=== PATIENT | female | born 1975 | race Caucasian/White ===

== ENCOUNTER 2021-01-22 10:24 | Emergency (ER) | payer SELFPAY ==
--- NOTE | 2021-01-22 10:30 | XR_ITS ---
WS: [id number] Exam: XR shoulder RT min 2V* [id number] Date/Time of Exam: 01/22/2021 10:30 AM Reason For Exam: injury/pain The projections of the shoulder reveal no fractures, anomalies, soft tissue swelling, or calcificatio ns. There is normal bony alignment. No irregularity of the bony architecture is noted. XR/XR shoulder RT min 2V* [id number] IMPRESSION: Negative right shoulder.
[2021-01-22 10:35] VITALS: BP 125/70; PULSE 81; RESP 16; TEMP 36.3; O2SAT 97; BMI 27.4
[2021-01-22 10:38] VITALS: BP 125/70; PULSE 58; RESP 16; O2SAT 99
--- NOTE | 2021-01-22 10:44 | ED_ITS ---
HPI - Extremity Injury (Upper) General: Chief Complaint: Extremity Injury, Upper Stated Complaint: R SHOULDER PAIN/INJURY Source: patient Mode of arrival: ambulatory Limitations: no limitations History of Present Illness: HPI narrative: Patient is a nice 45-year-old female who presents to ED today for evaluation of a right shoulder and elbow injury that she sustained earlier this morning after falling off of a hover board. Patient denies any other injury sustained during the fall. She denies striking her head, LOC, neck or back pain. MD complaint: injury to: shoulder and elbow Onset (ago): hour(s) Other Extremity Injury: Right: elbow and shoulder Other injuries: none Place: home Severity: moderate Relieving factors: immobilization Exacerbating factors: movement of extremity Context: fall Associated symptoms: Reports no associated symptoms; Denies neck pain Review of Systems Const: Denies: fever(s) Eyes: Denies: change in vision Card: Denies: chest pain Resp: Denies: dyspnea GI: Denies: nausea or vomiting Musc: Reports: joint pain (R elbow/shoulder) and limited range of motion; Denies: neck pain, back pain, extremity pain, extremity swelling or joint swelling Neuro: Denies: numbness in extremities or sensory changes PFSH ED PFSH: Social History Smoking and tobacco status: never smoked Alcohol intake: never Physical Exam Const: COMMON NORMALS: no acute distress, average body habitus, patient oriented x3, no limitations, healthy appearing, alert and well nourished GENERAL APPEARANCE: cooperative ORIENTATION/CONSCIOUSNESS: Yes awake, Yes oriented to person, Yes oriented to place and Yes oriented to time HENMT: COMMON NORMALS: normocephalic and atraumatic HEAD & SCALP: normocephalic and atraumatic Neck/C-Spine: COMMON NORMALS: full ROM CERVICAL SPINE: No pain with cervical ROM, No Cervical spine tenderness and No Paracervical muscle tenderness Extremity: GENERAL: Yes normal exam except as noted OTHER: TTP R clavicle and lateral/anterior glenohumeral joint; pt will not attempt any form of ROM secondary to pain; NV intact; no obvious bony deformity or dislocation noted; she has tenderness throughout R elbow; again will not attempt ROM; distal pulses normal; cap refill less than 2 secs Neuro: SIVA COMA SCALE: document GCS findings Ararat coma scale eye opening: Spontaneous Siva coma scale verbal response: Orientated Ararat coma scale motor response: Obey commands Siva coma scale total score: 15 COMMON NORMALS: patient oriented x3 and no sensory deficits noted SENSORIUM/ORIENTATION: Yes alert, Yes oriented to person, Yes oriented to place and Yes oriented to time Skin: NARRATIVE SKIN EXAM: no abrasions/lacerations noted Course Vital Signs: Vital signs: Vital Signs Temperature 97.3 F L 01/22/21 10:35 Pulse Rate 67 01/22/21 11:23 Respiratory Rate 16 01/22/21 11:23 Blood Pressure 111/73 01/22/21 11:23 Pulse Oximetry 99 01/22/21 11:23 MDM - Extremity Injury (Upper) MDM Narrative: Medical decision making narrative: XRs are normal. Patient will be placed in a shoulder sling with recommendations for passive range of motion over the next few days. I will place her on Diclofenac. Recommend she follow-up with PCP in 1 to 2 weeks if symptoms fail to improve. Imaging Data^: XR R elbow: Radiologist's impression: [address] [address] XRay Report Signed Patient: Kavitha Jenkins Unit #: [id number] : 1975 Age/Sex: 45 / F ADM Date: 01/22/21 Loc: ER Room/Bed: Attending Dr: Ordering Provider/Ordering MD: Lainey Marcelino Date of Service: 01/22/21 Procedure(s): XR elbow RT min 3V* [id number] Accession Number(s): [id number] Report Number: [id number] WS: [id number] Exam: XR elbow RT min 3V* [id number] Date/Time of Exam: 01/22/2021 10:45 AM Reason For Exam: injury/fall/pain Findings: There are no fractures, soft tissue swelling, or calcifications. The elbow shows normal bony alignment. There is no irregularity of the bony architecture. XR/XR elbow RT min 3V* [id number] IMPRESSION: Negative right elbow. Dictated By: Mg Guadalupe DO Signed By: Mg Guadalupe DO Signed Date/Time: 01/22/21 1102 DD/ 1101 XR R shoulder: Radiologist's impression: [facility] [address] [facility] [place] [address] XRay Report Signed Patient: Kavitha Jenkins Unit #: [id number] : 1975 Age/Sex: 45 / F ADM Date: 01/22/21 Loc: ER Room/Bed: Attending Dr: Ordering Provider/Ordering MD: Lainey Marcelino Date of Service: 01/22/21 Procedure(s): XR shoulder RT min 2V* 53430 Accession Number(s): [id number] Report Number: [id number] WS: [id number] Exam: XR shoulder RT min 2V* [id number] Date/Time of Exam: 01/22/2021 10:30 AM Reason For Exam: injury/pain The projections of the shoulder reveal no fractures, anomalies, soft tissue swelling, or calcifications. There is normal bony alignment. No irregularity of the bony architecture is noted. XR/XR shoulder RT min 2V* 29584 IMPRESSION: Negative right shoulder. Dictated By: Mg Guadalupe DO Signed By: Mg Guadalupe DO Signed Date/Time: 01/22/211102 DD/ 1102 Discharge Plan Discharge Patient Disposition: Home Clinical Impression: Acute pain of right shoulder, Pain in right elbow Condition: Stable Prescriptions: New diclofenac sodium 50 mg tablet,delayed release (DR/EC) 50 mg PO Q12H PRN (Reason: pain) Qty: 20 RF: 0 No Action cephalexin 500 mg capsule 500 mg PO Q12H 10 Days Qty: 20 RF: 0 mupirocin 2 % ointment 1 applic topical DAILY Qty: 22 RF: 0 Discharge Orders: Discharge ED (Routine); Ordered 01/22/21 Ordered By: Lainey Marcelino Patient Instructions: Opioid Safety Activity Restrictions/Additional Instructions: [facility] is committed to fighting the nationwide opiate epidemic. We are providing ALL patients with information regarding opiate safety. If you received opiate pain medication during your stay or if you received a prescription for opiate pain medication-please review this handout. If not, you may disregard. Thank you. As discussed please follow-up with your primary care in 1 to 2 weeks if pain persists. Over the next 48 hours begin passive range of motion of your shoulder and elbow joints as tolerated. You may use ice/heat as needed. I have prescr ibed you anti-inflammatory pain medication. Please do not take this medication with Aleve/Advil/Motrin/Ibuprofen. 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
--- NOTE | 2021-01-22 10:45 | XR_ITS ---
WS: [id number] Exam: XR elbow RT min 3V* [id number] Date/Time of Exam: 01/22/2021 10:45 AM Reason For Exam: injury/fall/pain Findings: There are no fractures, soft tissue swelling, or calcifications. The elbow shows normal bony alignme nt. There is no irregularity of the bony architecture. XR/XR elbow RT min 3V* 69125 IMPRESSION: Negative right elbow.
--- NOTE | 2021-01-22 11:05 | PC.NURSE ---
XRs done at bedside
[2021-01-22 11:23] VITALS: BP 111/73; PULSE 67; RESP 16; O2SAT 99
== END 2021-01-22 11:22 | disposition home or self-care (01) ==
PROVIDERS: Emergency Provider Physician Assistant
DX: M25.511 Pain in right shoulder (principal); M25.521 Pain in right elbow
CPT/HCPCS: 73030; 73080; 99282

== ENCOUNTER → 2022-02-13 11:31 | Outpatient (BNVA) | payer OTHER, SELFPAY | PROVIDERS: PCP Family Medicine; Visit Provider Nurse Practitioner Family | DX: M25.50 Pain in unspecified joint (principal); R73.9 Hyperglycemia, unspecified; M25.532 Pain in left wrist; R20.0 Anesthesia of skin | CPT/HCPCS: 80053; 80061; 83036; 84443; 85025; 85651; 86140; 86200; 86431 ==

== ENCOUNTER → 2022-02-19 08:17 | Outpatient (BNVA) | payer OTHER, SELFPAY | PROVIDERS: PCP Family Medicine; Visit Provider Nurse Practitioner Family | DX: M25.50 Pain in unspecified joint (principal); R73.9 Hyperglycemia, unspecified | CPT/HCPCS: 73130; 83036 ==

== ENCOUNTER 2022-07-20 07:09 | Emergency (ER) | payer OTHER, SELFPAY ==
[2022-07-20 07:14] VITALS: BP 147/75; PULSE 63; RESP 21; TEMP 36.9; O2SAT 100; BMI 31.1
--- NOTE | 2022-07-20 07:33 | PC.NURSE ---
pt reports sudden onset generalized weakness and facial numbness at 0515 this morning. Reports shortness of breath, denies symptoms, fevers, or chest pain. Pt reports she needs surgery to her left hand and has decreased ROM and strength at baseline. Pt able to move all extremities. Decreased strength noted to all extremities with left hand worse than right. Pt reports symptoms onset while on her way to work. Pt denies feeling anxious. Pt is A&Ox4, PERRL, lung sounds clear, bowel sounds present, abdomen soft and nontender to palpation. Skin pink/warm/dry.
--- NOTE | 2022-07-20 07:39 | CT_ITS ---
WS: [id number] CT HEAD NONCONTRAST HISTORY: weakness, facial/arm numbness TECHNIQUE: Contiguous axial imaging performed through the brain in 2.5 mm imaging. Bone and soft tiss ue windows. Sagittal and coronal reformats reviewed. All CT scans at [facility] use at least one of these dose optimization techniques: automated exposure control; mA and/or kV adjustment per pa tient size (includes targeted exams where dose is matched to clinical indication); or iterative recon struction. DLP: 966.68 mGy.cm COMPARISON: None available. No acute intracranial hemorrhage, midline shift or mass effect. No atrophy or prior infarcts or herniation. Ventricles: Normal size with no hydrocephalus. Paranasal sinuses: As visualized are clear. Mastoid air cells: Well pneumatized. Calvarium and scalp: Skull is intact with no soft tissue edema or swelling. CT/CT head wo con* 88949 IMPRESSION: Negative head CT.
--- NOTE | 2022-07-20 07:41 | ED_ITS ---
Documented by User: MEDINA Acevedo 07/20/22 14:55 HPI - Weakness General: Chief complaint: Weakness Stated complaint: numbness and weakness Time Seen by Provider: 07/20/22 07:12 Source: patient and family (son) Mode of arrival: wheelchair Limitations: no limitations History of Present Illness: Patient is a 46-year-old female who presents to ED today with a complaint of numbness/paresthesias to her face and bilateral upper extremities as well as generalized weakness. Patient states symptoms began around 5:15am this morning while driving to work. Patient denies feeling anxious or hyperventilating. No new medications recently. No recent illness/URI. She states she normally has some weakness to her left hand secondary to carpal tunnel-she is scheduled to be evaluated by a hand surgeon shortly for this and to schedule surgery. Patient states she is unable to am bulate secondary to generalized weakness. Patient denies any numbness or tingling to her legs. She is not having any chest pain, shortness of breath, difficulty breathing, palpitations. She has not noticed any facial drooping, slurred speech, expressive or receptive aphasia. Denies lightheadedne ss/dizziness. No visual changes although later tells me it does feel a little blurry. Patient states she is not having pain anywhere. Denies previous episodes. MD Complaint: generalized weakness, numbness and tingling Onset (ago): hour(s) Duration: constant Location: generalized Migration: none Quality: tingling and numbness Relieving factors: none Exacerbating factors: none Associated symptoms: Reports no associated symptoms; Denies chest pain, chills, confusion, fever(s), headache(s) or syncope Review of Systems Const: Denies: fever(s), chills, body aches, fatigue or malaise Eyes: Denies: change in vision or blurry vision Card: Denies: chest pain, palpitations, irregular heart rhythm, edema, lightheadedness, syncope or pre-syncope Resp: Denies: dyspnea GI: Denies: abdominal pain Musc: Reports: muscle weakness; Denies: neck pain, back pain, extremity pain, extremity swelling, joint pain, joint swelling, joint redness, joint warmth, joint stiffness, limited range of motion, muscle cramps or decrease in muscle mass Skin/Breast: Denies: rash Neuro: Reports: numbness in extremities, weakness in extremities, sensory changes and difficulty walking; Denies: headache(s), lack of coordination, frequent falls, dizziness, vertigo, confusion, behavioral changes, Slurred speech present, difficulty communicating thoughts, seizure-like activity, involuntary movements or restless legs PFSH ED PFSH: Family History Family/Other Cancer Diabetes Son Diabetes Mother Hypertension Brother Hypertension Denies family history of Chronic kidney disease (CKD) Lung disease Stroke Social History Smoking and tobacco status: never smoked Second hand smoke exposure: No Smoking risk assessment/counseling performed?: No Alcohol intake: never Desire information about alcohol rehabilitation?: No Counseling given: No Desire information about substance/drug rehabilitation?: No Counseling given: No Adopted: No Caregiver/support person: No Lives independently: Yes Household members: family Housing: House Marital status: Number of children: 8 Highest education level completed: 11th Grade service: No Current occupational status: employed History of recent travel: No Physical Exam Const: COMMON NORMALS: no acute distress, patient oriented x3, no limitations, healthy appearing, alert and well nourished GENERAL APPEARANCE: cooperative ORIENTATION/CONSCIOUSNESS: Yes awake, Yes oriented to person, Yes oriented to place and Yes oriented to time HENMT: COMMON NORMALS: normocephalic and atraumatic HEAD & SCALP: normal to inspection, normocephalic and atraumatic FACE & SINUS: normal facial exam Eye: COMMON NORMALS: Equal, round and reactive pupils present and EOMs intact bilaterally GENERAL EYE: appearance normal, both eyes and all related structures PUPIL: Yes Equal, round and reactive pupils present OTHER: no gaze deficits noted Neck/C-Spine: COMMON NORMALS: full ROM, no lymphadenopathy and no meningeal signs Resp: COMMON NORMALS: normal respiratory effort and clear to auscultation bilaterally AUSCULTATION: clear to auscultation bilaterally Cardio: COMMON NORMALS: regular rate and regular rhythm RATE: regular rate RHYTHM: regular rhythm GI: COMMON NORMALS: Normal to inspection, nondistended, normoactive bowel sounds present, Soft to palpation and non-tender PALPATION: Yes Soft to palpation Back/Pelvis: COMMON NORMALS: thoracic and lumbar spine normal to inspection, no thoracic nor lumbar tenderness and thoraco-lumbar ROM normal Extremity: COMMON NORMALS: normal to inspection, full ROM, capillary refill normal, no joint enlargement, no clubbing, cyanosis or edema, no calf tenderness and no pedal edema GENERAL: Yes normal exam except as noted Neuro: SIVA COMA SCALE: document GCS findings Siva coma scale eye opening: Spontaneous [place] coma scale verbal response: Orientated [place] coma scale motor response: Obey commands [place] coma scale total score: 15 COMMON NORMALS: patient oriented x3, moves all extremities and no focal motor deficits SENSORIUM/ORIENTATION: Yes alert, Yes oriented to person, Yes oriented to place and Yes oriented to time MENINGEAL SIGNS: Yes no meningeal signs CRANIAL NERVES: Yes CN normal except as noted COORDINATION/BALANCE: [id number]-as-calj test normal and ymqw-cz-sydz test normal SPEECH: speech normal SENSORY EXAM: Yes other (reports equal loss of sensation throughout face and bilateral UEs) MOTOR EXAM: Pronator motor function not present, Motor fasciculations not present, Abnormal motor strength present (no or minimal strength against resistance) and Other motor observations present (pt can hold extremities against gravity but seems to have trouble) DEEP TENDON REFLEXES: Right patellar reflex intensity grade: 2+ and Left patellar reflex intensity g rade: 2+ COORDINATION: klfcym-oz-[id number] test normal and [id number]-cp-hmyr test n ormal Skin: COMMON NORMALS: no rashes or lesions noted GENERAL SKIN EXAM: no rashes or lesions noted Course ED course: Dr. Morse also evaluated patient recommends we consult with Dr. Mehta for further evaluation. Consultations: Consultation #1: Dr. Mehta-will graciously come see/evaluate patient in ED Vital Signs: Vital signs: Vital Signs Temperature 98.4 F 07/20/22 07:14 Pulse Rate 52 L 07/20/22 13:17 Respiratory Rate 18 07/20/22 13:17 Blood Pressure 147/79 07/20/22 13:17 Pulse Oximetry 97 07/20/22 13:17 Oxygen Delivery Me thod 07/20/22 09:35 MDM - Weakness Lab Data : 07/20/22 07:46 07/20/22 07:[address] 07/20/22 07:39 IMPRESSION: Negative head CT. Head MRI 07/20/22 10:08 IMPRESSION: 1. No evidence of restricted diffusion to suggest acute ischemia. 2. 2 or 3 tiny foci of T2 hyperintensity at the vertex of doubtful clinical significance but can be seen with migraine headaches. No other suspicious intrac ranial signal abnormalities. 3. No hemosiderin on susceptibly weighted images. 4. No abnormal gadolinium enhancement. 5. No other suspicious findings. Laboratory Results WBC 6.5 10^3/uL (4.0-10.0) 07/20/22 07:46 RBC 4.78 10^6/uL (4.1-5.3) 07/20/22 07:46 Hgb 14.3 g/dL (11.5-15.3) 07/20/22 07:46 Hct 44.0 % (37.0-47.0) 07/20/22 07:46 MCV 92.1 fl (81-99) 07/20/22 07:46 MCH 29.9 pg (28.0-34.0) 07/20/22 07:46 MCHC 32.5 g/dL (30.0-36.0) 07/20/22 07:46 RDW 13.1 % (12.1-15.1) 07/20/22 07:46 Plt Count 213 10^3/cmm (130-400) 07/20/22 07:46 MPV 10.6 fL (7.4-10.4) H 07/20/22 07:46 Neut % (Auto) 76.6 % 07/20/22 07:46 Lymph % (Auto) 13.4 % 07/20/22 07:46 [place] % (Auto) 8.3 % 07/20/22 07:46 Eos % (Auto) 0.8 % 07/20/22 07:46 Baso % (Auto) 0.6 % 07/20/22 07:46 Neut # (Auto) 4.99 10^3/uL (1.8-7.7) 07/20/22 07:46 Lymph # (Auto) 0.9 10^3/uL (0.8-4.8) 07/20/22 07:46 [place] # (Auto) 0.5 10^3/uL (0.2-0.9) 07/20/22 07:46 Eos # (Auto) 0.1 10^3/uL (0.0-0.8) 07/20/22 07:46 Baso # (Auto) 0.0 10^3/uL (0.0-0.1) 07/20/22 07:46 Nucleated RBC % (auto) 0 % 07/20/22 07:46 Nucleated RBCs # 0.0 /100WBC 07/20/22 07:46 Sodium 135 mmol/L (136-145) L 07/20/22 07:46 Potassium 4.3 mmol/L (3.5-5.1) 07/20/22 07:46 Chloride 102 mmol/L (98-107) 07/20/22 07:46 Carbon Dioxide 24 mmol/L (22-29) 07/20/22 07:46 Anion Gap 13.3 (5-19) 07/20/22 07:46 BUN 12 mg/dL (6-20) 07/20/22 07:46 Creatinine 0.5 mg/dL (0.5-0.9) 07/20/22 07:46 GFR Calculation 132.8 mL/min (90-130) H 07/20/22 07:46 Glucose 97 mg/dL (65-115) 07/20/22 07:46 Calculated Osmolality 280 mOsm/kg (285-295) L 07/20/22 07:46 Calcium 8.8 mg/dL (8.5-10.5) 07/20/22 07:46 Total Bilirubin 0.6 mg/dL (0.15-1.2) 07/20/22 07:46 AST 16 U/L (0-32) 07/20/22 07:46 ALT 12 U/L (0-33) 07/20/22 07:46 Alkaline Phosphatase 70 U/L (35-105) 07/20/22 07:46 Creatine Kinase 143 U/L (26-192) 07/20/22 07:46 C-Reactive Protein 3.0 mg/L (0.0-4.9) 07/20/22 07:46 Total Protein 7.4 g/dL (6.6-8.7) 07/20/22 07:46 Albumin 4.2 g/dL (3.5-5.2) 07/20/22 07:46 Globulin 3.2 g/dL (1.3-4.6) 07/20/22 07:46 Urine Opiates Screen Negative ng/mL (Negative) 07/20/22 08:15 Ur Barbiturates Screen Negative ng/mL (Negative) 07/20/22 08:15 Ur Phencyclidine Scrn Negative ng/mL (Negative) 07/20/22 08:15 Ur Amphetamines Screen Negative ng/mL (Negative) 07/20/22 08:15 U Benzodiazepines Scrn Negative ng/mL (Negative) 07/20/22 08:15 Urine Cocaine Screen Negative ng/mL (Negative) 07/20/22 08:15 U Marijuana (THC) Screen Negative ng/mL (Negative) 07/20/22 08:15 Discharge Plan Discharge Patient Disposition: Home Clinical Impression: Migraine variant Condition: Stable Prescriptions: No Action No Known Home Medications Discharge Orders: Discharge ED (Routine); Ordered 07/20/22 Ordered By: Tj Morse Referrals: Say Parry MD [Primary Care Provider] - Discharge Diet: Usual diet Discharge Activity: Increase activity as tolerated Patient Instructions: Opioid Safety Activity Restrictions/Additional Instructions: Case management make arrangements for you to get you follow-up with neurology. Stand Alone Forms: Work/School Release Coding Level of Care Code ED Barrel Tester for Chg Fwd Exam Comprehensive Documented by User: Tj Morse DO 07/20/22 17:36 HPI - Weakness General: Chief complaint: Weakness Stated complaint: numbness and weakness Time Seen by Provider: 07/20/22 07:12 PFSH ED PFSH: Family History Family/Other Cancer Diabetes Son Diabetes Mother Hypertension Brother Hypertension Denies family history of Chronic kidney disease (CKD) Lung disease Stroke Social History Smoking and tobacco status: never smoked Second hand smoke exposure: No Smoking risk assessment/counseling performed?: No Alcohol intake: never Desire information about alcohol rehabilitation?: No Counseling given: No Desire information about substance/drug rehabilitation?: No Counseling given: No Adopted: No Caregiver/support person: No Lives independently: Yes Household members: family Housing: House Marital status: Number of children: 8 Highest education level completed: 11th Grade service: No Current occupational status: employed History of recent travel: No Physical Exam Neuro: SIVA COMA SCALE: document GCS findings [place] coma scale total score: 15 Course Vital Signs: Vital signs: Vital Signs Temperature 98.4 F 07/20/22 07:14 Pulse Rate 52 L 07/20/22 13:17 Respiratory Rate 18 07/20/22 13:17 Blood Pressure 147/79 07/20/22 13:17 Pulse Oximetry 97 07/20/22 13:17 Oxygen Delivery Me thod 07/20/22 09:35 MDM - Weakness Medical Decision Making Chart reviewed and patient discussed with midlevel. Agree with assessment and plan. Seen and evaluated the patient and examined her myself 35 as Ms. Marcelino does above. Patient did have 1 change in her history and then she told me she had some mild temporal pain that she had not reported Ms. Marcelino. Recommend that we Dr. Mehta see the patient we contacted her she came down and seen the patient recommend that we get an MRI treat her headache with DHE. She thinks some of this may be a migraine variant versus functional disorder. MRI completed shows no significant abnormalities patient's headache is better we will discharge home follow-up with neurology Medical Records I reviewed the patient's medical records. Lab Data I reviewed the patient's lab results. : 07/20/22 07:46 07/20/22 07:[address] 07/20/22 07:39 IMPRESSION: Negative head CT. Head MRI 07/20/22 10:08 IMPRESSION: 1. No evidence of restricted diffusion to suggest acute ischemia. 2. 2 or 3 tiny foci of T2 hyperintensity at the vertex of doubtful clinical significance but can be seen with migraine headaches. No other suspicious intracranial signal abnormalities. 3. No hemosiderin on susceptibly weighted images. 4. No abnormal gadolinium enhancement. 5. No other suspicious findings. Laboratory Results WBC 6.5 10^3/uL (4.0-10.0) 07/20/22 07:46 RBC 4.78 10^6/uL (4.1-5.3) 07/20/22 07:46 Hgb 14.3 g/dL (11.5-15.3) 07/20/22 07:46 Hct 44.0 % (37.0-47.0) 07/20/22 07:46 MCV 92.1 fl (81-99) 07/20/22 07:46 MCH 29.9 pg (28.0-34.0) 07/20/22 07:46 MCHC 32.5 g/dL (30.0-36.0) 07/20/22 07:46 RDW 13.1 % (12.1-15.1) 07/20/22 07:46 Plt Count 213 10^3/cmm (130-400) 07/20/22 07:46 MPV 10.6 fL (7.4-10.4) H 07/20/22 07:46 Neut % (Auto) 76.6 % 07/20/22 07:46 Lymph % (Auto) 13.4 % 07/20/22 07:46 [place] % (Auto) 8.3 % 07/20/22 07:46 Eos % (Auto) 0.8 % 07/20/22 07:46 Baso % (Auto) 0.6 % 07/20/22 07:46 Neut # (Auto) 4.99 10^3/uL (1.8-7.7) 07/20/22 07:46 Lymph # (Auto) 0.9 10^3/uL (0.8-4.8) 07/20/22 07:46 [place] # (Auto) 0.5 10^3/uL (0.2-0.9) 07/20/22 07:46 Eos # (Auto) 0.1 10^3/uL (0.0-0.8) 07/20/22 07:46 Baso # (Auto) 0.0 10^3/uL (0.0-0.1) 07/20/22 07:46 Nucleated RBC % (auto) 0 % 07/20/22 07:46 Nucleated RBCs # 0.0 /100WBC 07/20/22 07:46 Sodium 135 mmol/L (136-145) L 07/20/22 07:46 Potassium 4.3 mmol/L (3.5-5.1) 07/20/22 07:46 Chloride 102 mmol/L (98-107) 07/20/22 07:46 Carbon Dioxide 24 mmol/L (22-29) 07/20/22 07:46 Anion Gap 13.3 (5-19) 07/20/22 07:46 BUN 12 mg/dL (6-20) 07/20/22 07:46 Creatinine 0.5 mg/dL (0.5-0.9) 07/20/22 07:46 GFR Calculation 132.8 mL/min (90-130) H 07/20/22 07:46 Glucose 97 mg/dL (65-115) 07/20/22 07:46 Calculated Osmolality 280 mOsm/kg (285-295) L 07/20/22 07:46 Calcium 8.8 mg/dL (8.5-10.5) 07/20/22 07:46 Total Bilirubin 0.6 mg/dL (0.15-1.2) 07/20/22 07:46 AST 16 U/L (0-32) 07/20/22 07:46 ALT 12 U/L (0-33) 07/20/22 07:46 Alkaline Phosphatase 70 U/L (35-105) 07/20/22 07:46 Creatine Kinase 143 U/L (26-192) 07/20/22 07:46 C-Reactive Protein 3.0 mg/L (0.0-4.9) 07/20/22 07:46 Total Protein 7.4 g/dL (6.6-8.7) 07/20/22 07:46 Albumin 4.2 g/dL (3.5-5.2) 07/20/22 07:46 Globulin 3.2 g/dL (1.3-4.6) 07/20/22 07:46 Urine Opiates Screen Negative ng/mL (Negative) 07/20/22 08:15 Ur Barbiturates Screen Negative ng/mL (Negative) 07/20/22 08:15 Ur Phencyclidine Scrn Negative ng/mL (Negative) 07/20/22 08:15 Ur Amphetamines Screen Negative ng/mL (Negative) 07/20/22 08:15 U Benzodiazepines Scrn Negative ng/mL (Negative) 07/20/22 08:15 Urine Cocaine Screen Negative ng/mL (Negative) 07/20/22 08:15 U Marijuana (THC) Screen Negative ng/mL (Negative) 07/20/22 08:15 Discharge Plan Discharge Patient Disposition: Home Clinical Impression: Migraine variant Condition: Stable Prescriptions: No Action No Known Home Medications Discharge Orders: Discharge ED (Routine); Ordered 07/20/22 Ordered By: Tj Morse Referrals: Say Parry MD [Primary Care Provider] - Discharge Diet: Usual diet Discharge Activity: Increase activity as tolerated Patient Instructions: Opioid Safety Activity Restrictions/Additional Instructions: Case management make arrangements for you to get you follow-up with neurology. Stand Alone Forms: Work/School Release Coding Level of Care Code ED Barrel Tester for Chg Fwd Exam Comprehensive
--- NOTE | 2022-07-20 07:49 | ECG_ITS ---
[facility] Test Date: 2022-07-20 Pat Name: Kavitha Jenkins Department: Room: Gender: Female Pull Over: : 1975 Requested By: Lainey Marcelino Order Number: [id number] Susana MD: Marie Fuentes M.D. Measurements Intervals [place] Rate: 58 P: 30 WV: 173 QRS: 16 QRSD: 93 T: 47 QT: 395 QTc: 388 Interpretive Statements SINUS BRADYCARDIA Compared to ECG 08/29/2018 13:59:58 Sinus rhythm no longer present Electronically Signed On 07-20-2022 8:03:10 CDT by Marie Fuentes M.D. [id number]
--- NOTE | 2022-07-20 07:56 | PC.NURSE ---
pt taken to CT via stretcher
[2022-07-20] MEDS: sodium chloride 0.9% 1,000 ML 999 ML IV (08:02)
[2022-07-20 08:03] LABS: Basophils % 0.6 %; Eosinophils # 0.1 10^3/uL (0.0-0.8); Eosinophils % 0.8 %; Hemoglobin 14.3 g/dL (11.5-15.3); Lymphocytes # 0.9 10^3/uL (0.8-4.8); Lymphocytes % 13.4 %; Mean Corpuscular HGB Conc 32.5 g/dL (30.0-36.0); Mean Corpuscular Hemoglobin 29.9 pg (28.0-34.0); Mean Corpuscular Volume 92.1 fl (81-99); Mean Platelet Volume 10.6 fL (7.4-10.4); Monocytes # 0.5 10^3/uL (0.2-0.9); Monocytes % 8.3 %; Neutrophils # 4.99 10^3/uL (1.8-7.7); Neutrophils % 76.6 %; Nucleated Red Blood Cells % 0 %; Platelet Count 213 10^3/cmm (130-400); Red Blood Count 4.78 10^6/uL (4.1-5.3); Red Cell Distribution Width 13.1 % (12.1-15.1); White Blood Count 6.5 10^3/uL (4.0-10.0)
[2022-07-20 08:05] VITALS: BP 132/78; PULSE 59; RESP 20; O2SAT 99
[2022-07-20 08:21] LABS: Alanine Aminotransferase 12 U/L (0-33); Albumin Level 4.2 g/dL (3.5-5.2); Alkaline Phosphatase 70 U/L (35-105); Blood Urea Nitrogen 12 mg/dL (6-20); Calcium 8.8 mg/dL (8.5-10.5); Carbon Dioxide 24 mmol/L (22-29); Chloride 102 mmol/L (98-107); Creatinine Clr Calc Pharmacy 135.1739; Globulin 3.2 g/dL (1.3-4.6); Glomerular Filtration Rate 132.8 mL/min (90-130); Glucose 97 mg/dL (65-115); Osmolality Calculated 280 mOsm/kg (285-295); Sodium 135 mmol/L (136-145); Total Bilirubin 0.6 mg/dL (0.15-1.2); Total Protein 7.4 g/dL (6.6-8.7)
[2022-07-20 08:26] LABS: Anion Gap 13.3 (5-19); Aspartate Amino Transferase 16 U/L (0-32); Potassium 4.3 mmol/L (3.5-5.1)
[2022-07-20 08:35] LABS: Amphetamines Screen Urine Negative (Negative); Barbiturates Screen Urine Negative (Negative); Benzodiazepines Screen Urine Negative (Negative); Cocaine Screen Urine Negative (Negative); Opiate Screen Urine Negative (Negative); PCP Screen Urine Negative (Negative); THC Screen Urine Negative (Negative)
[2022-07-20 08:51] LABS: Creatine Phosphokinase 143 U/L (26-192)
--- NOTE | 2022-07-20 09:10 | PC.NURSE ---
pt resting in bed, call light within reach. denies needs at this time
[2022-07-20 09:11] VITALS: BP 121/70; PULSE 56; RESP 21; O2SAT 99
[2022-07-20 09:35] VITALS: BP 124/71; PULSE 54; RESP 18; O2SAT 99
--- NOTE | 2022-07-20 09:48 | PC.NURSE ---
Walked pt to and from restroom. Pt able to get out of bed and walk to bathroom without assistance, as well as walk back to bed. Pt gait slow but steady.
--- NOTE | 2022-07-20 10:08 | MR_ITS ---
WS: [id number] MRI HEAD WITH CONTRAST TECHNIQUE: Sagittal T1, T2 axial, T2 axial FLAIR, axial susceptibility weighted imaging, axial diffus ion weighted images, and coronal T2 images were obtained. Pre and post-T1 axial and post T1 coronal i mages. ADC and FSPGR images. CLINICAL INFORMATION: parathesias, weakness COMPARISON: CT July 20, 2022 FINDINGS: No evidence of restricted diffusion to suggest acute ischemia. Ventricular system and basal cisterns are patent. No suspicious intracranial signal abnormalities. A few tiny foci of T2 hyperintensity at the vertex of doubtful clinical significance but can be seen with migraine headaches. No other suspic ious signal abnormalities. Normal posterior fossa. Normal vascular flow voids at the skull base. Mild mucosal thickening in the paranasal sinuses. Mastoid air cells are well aerated. Normal posterior nasopharynx. No hemosiderin o n the susceptibly weighted images. Normal optic chiasm and pituitary infundibulum. No abnormal gadolinium enhancement. Normal cavernous sinuses and Meckel's cave. Normal dural venous s inuses. MR/MR head wo/w con [id number] IMPRESSION: 1. No evidence of restricted diffusion to suggest acute ischemia. 2. 2 or 3 tiny foci of T2 hyperintensity at the vertex of doubtful clinical si gnificance but can be seen with migraine headaches. No other suspicious intracr anial signal abnormalities. 3. No hemosiderin on susceptibly weighted images. 4. No abnormal gadolinium enhancement. 5. No other suspicious findings.
--- NOTE | 2022-07-20 10:29 | PC.NURSE ---
pt to MRI via wheelchair
[2022-07-20] MEDS: gadobenate dimeglumine 20 mL vial IV (11:16)
[2022-07-20] MEDS: diphenhydrAMINE 50 mg/mL SDV 1mL 25 MG IVP (11:34)
[2022-07-20] MEDS: dihydroergotamine 1 mg/mL Inj IVP (11:41)
--- NOTE | 2022-07-20 11:54 | PC.NURSE ---
ED provider notified pt hr 40s-50s
[2022-07-20 11:58] VITALS: BP 125/71; PULSE 54; O2SAT 98
[2022-07-20 13:17] VITALS: BP 147/79; PULSE 52; RESP 18; O2SAT 97
--- NOTE | 2022-07-20 13:38 | PM.SAN ---
Stroke Alert Activation ED Arrival Date: 07/20/22 ED Arrival Time: 07:14 Other Last Known Well Infomation: I was called by Lainey Marcelino out of concern that this patient was experiencing an acute neurologic event, either stroke or an acute inflammatory event such as a sending paralysis. I came to the emergency department and evaluated the patient, took a history and did an examination. She seemed to be weak in all 4 extremities but had intact reflexes. She was numb to pin all the way from her toes to the base of her neck. She was complaining of a headache that she described as 5 out of 10 on the intensity scale and she described a history of migraines accompanied by vertigo and diplopia. Based on several inconsistencies on her exam it was my conclusion that the patient was experiencing a migraine variant. Because of the profound findings of weakness on exam I felt that she needed to have an MRI performed emergently even though her CAT scan of the head was negative. Her MRI scan showed several T2 lesions consistent with her history of migraine. Her symptoms resolved after D.H.E. 45 protocol. I am scheduled to see her in the office later this week. The patient felt fine yesterday and she did not do anything remarkable yesterday. She woke up this morning feeling fine and got ready to go to work. Her fianc? was in the passenger seat and she was in the motor pool driver seat when she started feeling a sense of paresthesias in both sides of her face. She did not want to drive but her fianc? cannot drive so she drove here. She was triaged immediately as concern for stroke.She was seen immediately by Lainey Marcelino, who called me after evaluating the patient. I came to the ER and performed an examination which is detailed below. The patient gave poor effort on muscle testing. There were some inconsistencies in her exam. Stroke Alert Activation Date: 07/20/22 NIH stroke score NIHSS: Level Of Consciousness - 1a: 0 Level Of Consciousness Questions - 1b: Both Correct Level Of Consciousness Commands - 1c: Both Correct Best Gaze - 2: Normal Visual Haney - 3: No Visual Loss Facial Palsy - 4: Normal Motor Arm Right - 5: No Drift Motor Arm Left - 5: No Drift Motor Leg Right - 6: No Drift Motor Leg Left - 6: No Drift Limb Ataxia - 7: Absent Sensory - 8: Severe To Total Loss Best Language - 9: No Aphasia Dysarthia - 10: Normal Extinction And Inattention - 11: 0 Score: Total Score: 2 Stroke Alert Data/Treatment CT Impression: CT of the head was normal. MRI of the brain was normal. tPA Contraindication: tPA Contraindication: Treatment not indcated Patient & Family Educated on: Treament Plan Other Patient & Family Education: I explained to the patient that I thought that she was having a migraine. I discussed the case with Dr. Prakash. Critical Care Time Critical Care Time: 30 - 74 mins A&P Assessment and plan (1) Migraine variant: Status: Acute Coding Level of Care Code Acute Division Operations Specialist for [facility] Fwd Diagnoses Migraine variant G43.809
--- NOTE | 2022-07-21 08:35 | DCPLANNER ---
Addendum entered by Henrietta Velazquez 08/14/22 08:50: Patient had a follow up appointment scheduled with neurology - patient did attend appointment. Addendum entered by Henrietta Velazquez 07/24/22 10:59: Patient has a follow up appointment scheduled for Wednesday, July 29, 2022 at 12:[address] Mehta. Clinic will call patient with appointment information. Original Note: manager database administration had message to schedule a follow up appointment for patient with neurology. manager database administration sent patients information to the front office staff at neurology. Patients information will be printed and reviewed. Clinic will call patient with appointment information.
== END 2022-07-20 13:23 | disposition home or self-care (01) ==
PROVIDERS: Physician Assistant; Emergency Provider Family Medicine; PCP Family Medicine
DX: G43.809 Other migraine, not intractable, without status migrainosus (principal)
CPT/HCPCS: 70450; 70553; 80053; 80306; 82550; 85025; 86140; 93005; 96361; 96374; 96375; 99285; A9577; J1110; J1200; J7030

== ENCOUNTER 2022-08-18 10:29 | Outpatient (CLI) | payer OTHER, SELFPAY ==
--- NOTE | 2022-08-18 10:41 | MM_ITS ---
WS: [id number] BILATERAL SCREENING DIGITAL TOMOSYNTHESIS MAMMOGRAM WITH CAD HISTORY: SCREENING COMPARISON: None available. Bilateral CC and MLO views with tomosynthesis and synthetic mammography submitted. Computer aided det ection analyzed. Breast composition: There are scattered areas of fibroglandular density. No suspicious masses, microc alcifications or architectural distortion. Benign lymph node upper outer quadrant RIGHT breast. MM/[place] [id number] IMPRESSION: BI-RADS: 2-Benign FOLLOW UP: 1 Year Follow-up
== END 2022-08-18 10:30 | disposition home or self-care (01) ==
LOC: RAD 10:30
PROVIDERS: PCP Nurse Practitioner Family; Visit Provider Nurse Practitioner Family
DX: Z12.31 Encounter for screening mammogram for malignant neoplasm of breast (principal)
CPT/HCPCS: 77063; 77067

== ENCOUNTER → 2022-11-04 15:27 | Outpatient (BNVA) | payer OTHER, SELFPAY | PROVIDERS: PCP Nurse Practitioner Family; Visit Provider Nurse Practitioner Family | DX: R50.9 Fever, unspecified (principal); J10.1 Influenza due to other identified influenza virus with other respiratory manifestations | CPT/HCPCS: 87400; 87426 ==

== ENCOUNTER → 2024-03-27 11:54 | Outpatient (BNVA) | payer SELFPAY | PROVIDERS: PCP Nurse Practitioner Family; Visit Provider Nurse Practitioner Family | DX: M77.8 Other enthesopathies, not elsewhere classified (principal); M25.529 Pain in unspecified elbow; M25.429 Effusion, unspecified elbow | CPT/HCPCS: 73080 ==

== ENCOUNTER 2024-06-10 15:07 | Emergency (ER) | payer SELFPAY ==
[2024-06-10 15:12] VITALS: BP 148/81; PULSE 80; RESP 17; TEMP 36.7; O2SAT 100; BMI 35.8
--- NOTE | 2024-06-10 16:21 | USR_ITS ---
PROCEDURE INFORMATION: Exam: US Duplex Left Upper Extremity Veins, Limited Exam date and time: 06/10/2024 4:49 PM Age: 48 years old Clinical indication: Pain; Arm, upper and arm, lower; Left; Additional info: Atraumatic pain, cool extremity TECHNIQUE: Imaging protocol: Real-time duplex ultrasound of the left extremity with 2-D houser scale, color Doppler flow and spectral waveform analysis including responses to compression and other maneuvers (when performed) with image documentation. Limited exam focused on the left upper extremity veins. COMPARISON: CR XR elbow LT min 3V* [id number] 03/27/2024 11:53 AM FINDINGS: Left deep veins: Internal jugular, innominate, subclavian, axillary, brachial, radial and ulnar veins patent without thrombus. Normal compressibility, augmentation response and/or Doppler waveforms. Superficial veins: Unremarkable. Visualized cephalic and basilic veins are patent without thrombus. Soft tissues: Unremarkable. US/[place] [id number] IMPRESSION: No sonographic evidence of deep vein thrombosis.
[2024-06-10] MEDS: ciprofloxacin 0.3% Op Soln 2.5 mL Btl 1 DROP EYE-RIGHT (16:31)
[2024-06-10] MEDS: dexamethasone 10 mg/mL INJ IM (16:31)
--- NOTE | 2024-06-10 16:47 | W.ED.EYEPROB ---
HPI - Eye Problem General: Chief complaint: Eye Problems Stated complaint: right eye light sensitive, left arm pain Time Seen by Provider: 06/10/24 16:08 Source: patient Mode of arrival: ambulatory Limitations: no limitations History of Present Illness: Patient presents to the emergency department complaining of right eye redness for the past couple days, and also some worsening numbness and pain to her left upper extremity. With her eyes she states that the redness and pain were previously to the left eye though this has improved on its own. She states it is now in her right eye and she is having some blurred vision. Pain is also worsened with exposure to bright lights. Has not taken anything for her symptoms. She does wear contacts. She states that her left arm pain has previously underwent x-rays that did not demonstrate any acute abnormalities. She was set to undergo a carpal tunnel release surgery, however this is currently being worked out through her insurance and primary care. She states she is also in the works to get an MRI performed. She just states that the numbness and pain have gotten too severe, also notes some coolness to her left upper extremity distally. Also reports history of arthritis in her joints. Has not gotten pain relief from the Tylenol at home. No other symptoms or concerning historical factors noted at this time. chief complaint: eye pain and eye redness Onset (ago): day(s) Onset description: sudden Duration: constant Location: right eye Mechanism: none Context: contact lens use Associated symptoms: Denies fever(s), headache(s), nausea, neck pain or vomiting Review of Systems General: Reports: 10 or more systems reviewed and unremarkable except in HPI and below Const: Denies: fever(s), chills or fatigue Eyes: Reports: blurry vision, eye discomfort and eye redness ENMT: Denies: throat pain, ear or mastoid pain or nasal discharge Card: Denies: chest pain, palpitations, swelling of feet/ankles or lightheadedness Resp: Denies: dyspnea, productive cough or wheezing GI: Denies: abdominal pain, nausea, vomiting, diarrhea or constipation : Denies: flank pain, difficulty voiding, dysuria or urinary frequency Musc: Reports: extremity pain (Left upper extremity); Denies: neck pain, back pain or joint pain Skin/Breast: Denies: rash Neuro: Reports: numbness in extremities (Left upper extremity); Denies: headache(s) or weakness in extremities PFSH ED PFSH: Family History Family/Other Cancer Diabetes Son Diabetes Mother Hypertension Brother Hypertension Denies family history of Chronic kidney disease (CKD) Lung disease Stroke Social History Smoking and tobacco/nicotine status: never used tobacco/nicotine Second hand smoke exposure: No Alcohol intake: never Substance/Drug Use: never Adopted: No Caregiver/support person: No Lives independently: Yes Household members: family Housing: House Marital status: Number of children: 8 Highest education level completed: 11th Grade service: No Current occupational status: employed Physical Exam Const: COMMON NORMALS: no acute distress, patient oriented x3, no limitations, healthy appearing, alert and well nourished HENMT: COMMON NORMALS: normocephalic and atraumatic HEAD & SCALP: normocephalic and atraumatic Eye: COMMON NORMALS: Equal, round and reactive pupils present and EOMs intact bilaterally VISUAL ACUITY: Yes acuity normal PERIORBITAL: periorbital findings normal EYELID: eyelids normal CONJUNCTIVA: Yes conjunctival abnormal positive right conjunctival injection diffuse PUPIL: Yes Equal, round and reactive pupils present Neck/C-Spine: COMMON NORMALS: full ROM, supple and no meningeal signs Resp: COMMON NORMALS: normal respiratory effort, No use of accessory muscles and clear to auscultation bilaterally AUSCULTATION: clear to auscultation bilaterally Cardio: COMMON NORMALS: regular rate and regular rhythm RATE: regular rate RHYTHM: regular rhythm Extremity: COMMON NORMALS: normal to inspection, full ROM, capillary refill normal, no joint enlargement and no clubbing, cyanosis or edema NARRATIVE EXTREMITY EXAM: There is some notable coolness to her left upper extremity when compared to the right. She does have good radial pulse. Full range of motion with extension and flexion of the left elbow joint, as well as range of motion with the wrist and fingers. Reproducible tenderness to palpation of the lateral epicondyle. No significant joint edema or appreciable joint effusion at this time. Neuro: COMMON NORMALS: patient oriented x3, moves all extremities, no focal motor deficits and no sensory deficits noted SENSORIUM/ORIENTATION: Yes alert MENINGEAL SIGNS: Yes no meningeal signs Skin: COMMON NORMALS: no rashes or lesions noted GENERAL SKIN EXAM: no rashes or lesions noted Course Vital Signs: Vital signs: Vital Signs Temperature 98.0 F 06/10/24 15:12 Pulse Rate 80 06/10/24 15:12 Respiratory Rate 17 06/10/24 15:12 Blood Pressure 148/81 06/10/24 15:12 Pulse Oximetry 100 06/10/24 15:12 Oxygen Delivery Me thod Room Air 06/10/24 15:12 MDM - Eye Problem Medical Decision Making Patient presented with 2 complaints, right eye redness evolving over the past day or so as well as some chronic left arm numbness and pain that is increasing. For her eye, it did appear to be a bacterial conjunctivitis, and she notes she is a contact wearer. No concern for an orbital/preseptal cellulitis as her visual changes were unremarkable, and we will treat for a bacterial conjunctivitis at this time with ciprofloxacin to cover for Pseudomonas. In addition, she did have x-rays recently of her left arm that were negative and is currently arranging for an MRI after insurance approves this. However due to some reportedly new coolness to her left upper extremity as well as to some diffuse pain around the elbow joint, I did want to rule out a blood clot. Ultrasound was negative for any DVT, and we will continue having her follow-up to obtain an MRI as I suspect tendinopathy involving the left elbow joint. She does have a brace that she will continue to wear and return precautions were given. Lab Data Radiology Impressions Venous Duplex 06/10/24 16:21 IMPRESSION: No sonographic evidence of deep vein thrombosis. All radiology interpretation(s) finalized by discharge Discharge Plan Discharge Patient Disposition: Home Clinical Impression: Acute bacterial conjunctivitis, Arm pain, left Condition: Stable Prescriptions: New ciprofloxacin HCl 0.3 % drops 1 drp ophthalmic (eye) Q4H Qty: 10 0RF No Action ondansetron HCl 4 mg tablet 4 mg PO QID PRN (Reason: nausea and vomiting) Qty: 20 0RF oseltamivir [Tamiflu] 75 mg capsule 75 mg PO BID 5 Days Qty: 10 0RF sulfamethoxazole-trimethoprim [Bactrim DS] 800-160 mg tablet 1 tab PO BID Qty: 20 0RF mupirocin 2 % ointment 1 applic topical TID Qty: 15 0RF cyclobenzaprine 10 mg tablet 10 mg PO TID Qty: 30 0RF prednisone 10 mg tablets,dose pack See Rx Instructions PO PER PKG DIR Qty: 21 0RF Rx Instructions: PO PER PKG DIR amitriptyline 25 mg tablet 25 mg PO DAILY Qty: 60 3RF topiramate [Topamax] 50 mg tablet 50 mg PO BID 90 Days Qty: 180 3RF Discharge Orders: Discharge ED (Routine); Ordered 06/10/24 Ordered By: Lionel Grant Referrals: Sharda Live FNP-C [Primary Care Provider] - Discharge Diet: Usual diet Discharge Activity: Increase activity as tolerated Patient Instructions: Conjunctivitis (ED) Activity Restrictions/Additional Instructions: Ciprofloxacin drops as prescribed. Please continue following up with primary care to obtain MRI of the left arm, your ultrasound today was negative for blood clot. Continue Tylenol and ibuprofen for any pain. Wear brace as needed for comfort and apply ice. Return with any new or worsening symptoms. Coding Level of Care Code ED Tobacco Shaker for Kemar Greenberg
== END 2024-06-10 17:48 | disposition home or self-care (01) ==
PROVIDERS: Emergency Provider Physician Assistant; PCP Nurse Practitioner Family
DX: H10.31 Unspecified acute conjunctivitis, right eye (principal); M79.602 Pain in left arm
CPT/HCPCS: 93971; 96372; 99284; J1100

== ENCOUNTER 2025-09-05 09:45 | Outpatient (CLI) | payer OTHER, SELFPAY ==
--- NOTE | 2025-09-05 09:51 | XR_ITS ---
WS: [id number] Left shoulder, 2 views, 09/05/2025 Clinical Data: M54.2 - Cervicalgia Comparison: Left shoulder, 10/06/2013 Findings: No fractures or dislocations are seen. The AC joint is normal. The adjacent left clavicle, left scapula and ribs are normal. The soft tissues are unremarkable. XR/XR shoulder LT min 2V* [id number] Impression: Negative left shoulder.
--- NOTE | 2025-09-05 09:51 | XR_ITS ---
WS: [email or web address] Cervical spine, 3 views, 09/05/2025 Clinical Data: M54.2 - Cervicalgia Comparison: None. Findings: No compression fractures are seen. The disc heights are normal. Minimal anterior spurring at C4 and C5 is seen. There is no prevertebral soft tissue swelling. The odontoid is unremarkable. The soft tissues of the neck and the lung apices are normal. 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
== END 2025-09-05 09:46 | disposition home or self-care (01) ==
LOC: RAD 09:47
PROVIDERS: PCP Nurse Practitioner Family; Visit Provider Nurse Practitioner
DX: M25.512 Pain in left shoulder (principal); M47.812 Spondylosis without myelopathy or radiculopathy, cervical region
CPT/HCPCS: 72040; 73030

== ENCOUNTER 2025-10-31 08:23 | Emergency (ER) | payer OTHER, SELFPAY ==
[2025-10-31 08:24] VITALS: BP 121/72; PULSE 83; RESP 17; TEMP 36.6; O2SAT 92; BMI 35.1
--- NOTE | 2025-10-31 08:34 | ED_ITS ---
HPI - Nausea/Vomiting/Diarrhea 2 General: Chief complaint: Nausea/Vomiting/Diarrhea Stated complaint: N/V Weakness Time Seen by Provider: 10/31/25 08:24 History of Present Illness: 50-year-old female with a history of hyp ertension who presents to the emergency room with nausea and vomiting that has been going on all night. She does not have any abdominal pain. No diarrhea. No dysuria. No fever. She received Zofran and then Phenergan in the ambulance. Also some fluids. Vomiting has improved somewhat. Related Data Previous Rx's ?Medication ?Instructions ?Recorded verapamil 80 mg tablet 80 mg PO BID #60 tabs meloxicam 15 mg tablet 15 mg PO DAILY #30 tabs 08/29 02/20 ondansetron 8 mg disintegrating 8 mg PO Q6H #14 tabs 1 01/01/25 tablet promethazine 25 mg rectal 25 mg NJ Q6H PRN nausea and 10/31/25 suppository vomiting #12 ea Allergies Allergy/AdvReac Type Severity Reaction Status Date / Time No Known Allergies Allergy Verified 08/30/25 15:21 Review of Systems 2 Narrative: Constitutional symptoms: Negative except as documented in HPI. Skin symptoms: Negative except as documented in HPI. Eye symptoms: Negative except as documented in HPI. ENMT symptoms: Negative except as documented in HPI. Respiratory symptoms: Negative except as documented in HPI. Cardiovascular symptoms: Negative except as documented in HPI. Gastrointestinal symptoms: Negative except as documented in HPI. Genitourinary symptoms: Negative except as documented in HPI. Musculoskeletal symptoms: Negative except as documented in HPI. Neurologic symptoms: Negative except as documented in HPI. Psychiatric symptoms: Negative except as documented in HPI. Endocrine symptoms: Negative except as documented in HPI. PFSH ED 2 PFSH: Medical History (Updated 10/31/25 @ 09:46 by Patty Armstrong MD) Essential hypertension Chronic migraine without aura, intractable, with status migrainosus Surgical History Hx of hidradenitis suppurativa History of uterine ablation Hx of section 3 times Family History Family/Other Cancer Diabetes Son Diabetes Mother Hypertension Brother Hypertension Denies family history of Chronic kidney disease (CKD) Lung disease Stroke Social History Smoking and tobacco/nicotine status: never used tobacco/nicotine Second hand smoke exposure: No Alcohol intake: never Substance/Drug Use: never Adopted: No Caregiver/support person: No Lives independently: Yes Household members: family Housing: House Marital status: Number of children: 8 Highest education level completed: 11th Grade service: No Current occupational status: employed Physical Exam 2 Narrative: EXAM NARRATIVE: General: Alert, no acute distress. Skin: Warm, dry. Head: Normocephalic, atraumatic. Neck: Supple, trachea midline. Eye: Extraocular movements are intact. Ears, nose, mouth and throat: Tacky oral mucosa Cardiovascular: Regular, Normal peripheral perfusion. Respiratory: Lungs are clear to auscultation, respirations are non-labored, breath sounds are equal, Symmetrical chest wall expansion. Gastrointestinal: Soft, Nontender, Non distended Musculoskeletal: Normal ROM, no deformity. Neurological: Alert and oriented, No focal neurological deficit observed. Psychiatric: Cooperative, appropriate mood & affect. Course 2 Vital Signs: Vital signs: Vital Signs Temperature 97.8 F 10/31/25 08:24 Pulse Rate 62 10/31/25 09:24 Respiratory Rate 15 10/31/25 09:24 Blood Pressure 140/66 10/31/25 09:24 Pulse Oximetry 91 10/31/25 09:24 Oxygen Delivery Me thod Room Air 10/31/25 08:24 MDM - Nausea/Vomiting/Diarrhea Medical Decision Making Medical decision making Patient's reason for coming to the emergency room: Nausea and vomiting Social determinants: Patient is employed I reviewed the patient's medical record. Patient has a history of hypertension. She does follow with family practice here. I reviewed the patient's current home meds Patient is on verapamil for blood pressure Alternate historians: None Differential diagnosis for this patient with nausea and vomiting including but not limited to and based on the above HPI, review of systems and physical exam: Urinary tract infection. Appendicitis. Cholecystitis. Colitis. small bowel obstruction. crohn's flare. pancreatitis. gastritis. peptic ulcer. cyclic vomiting. Viral illness. Influenza. COVID. And would have concern for resultant dehydration or renal failure. Orders placed to evaluate differential diagnosis based on the above differential, HPI and physical exam Lab Review: Laboratory results were reviewed and interpreted by myself the emergency room physician. No leukocytosis. No anemia. No renal failure. No urinary tract infection. Flu COVID and RSV are negative. Lipase is negative. Liver enzymes are negative Assessment of risk: Level of risk: Low risk patient. Hospitalization considerations: Patient is no longer vomiting. She says she is okay to go home Reexamination: Patient remained stable. No increased work of breathing. No altered mental status. No focal motor deficits. Assessment and plan: Gastroenteritis Dehydration ?Patient has received IV Zofran and 1 L IV fluids. - Discharged home - Discussed plan with patient. Answered any questions. - Evaluation and treatment of this problem were appropriate in the emergency setting. Lab Data 10/31/25 08:41 10/31/25 08:41 Laboratory Results WBC 8.34 10^3/uL (3.29-11.43) 10/31/25 08:41 RBC 4.56 10^6/uL (3.85-5.65) 10/31/25 08:41 Hgb 13.60 g/dL (11.27-16.99) 10/31/25 08:41 Hct 42.5 % (36-47) 10/31/25 08:41 MCV 93.2 fl (85-98) 10/31/25 08:41 MCH 29.8 pg (27-33) 10/31/25 08:41 MCHC 32.0 g/dL (30-55) 10/31/25 08:41 RDW 13.3 % (12.1-15.1) 10/31/25 08:41 Plt Count 235 10^3/cmm (157-399) 10/31/25 08:41 MPV 10.3 fL (7.4-10.4) 10/31/25 08:41 Neut % (Auto) 92.3 % 10/31/25 08:41 Lymph % (Auto) 4.1 % 10/31/25 08:41 [place] % (Auto) 3.2 % 10/31/25 08:41 Eos % (Auto) 0.0 % 10/31/25 08:41 Baso % (Auto) 0.2 % 10/31/25 08:41 Neut # (Auto) 7.69 10^3/uL (1.8-7.7) 10/31/25 08:41 Lymph # (Auto) 0.3 10^3/uL (0.8-4.8) L 10/31/25 08:41 [place] # (Auto) 0.3 10^3/uL (0.2-0.9) 10/31/25 08:41 Eos # (Auto) 0.0 10^3/uL (0.0-0.8) 10/31/25 08:41 Baso # (Auto) 0.0 10^3/uL (0.0-0.1) 10/31/25 08:41 Nucleated RBC % (auto) 0 % 10/31/25 08:41 Nucleated RBCs # 0.0 /100WBC 10/31/25 08:41 Sodium 140 mmol/L (136-145) 10/31/25 08:41 Potassium 4.2 mmol/L (3.5-5.1) 10/31/25 08:41 Chloride 104 mmol/L (98-107) 10/31/25 08:41 Carbon Dioxide 26 mmol/L (22-29) 10/31/25 08:41 Anion Gap 14.2 (5-19) 10/31/25 08:41 BUN 18 mg/dL (6-20) 10/31/25 08:41 Creatinine 0.5 mg/dL (0.5-0.9) 10/31/25 08:41 GFR Calculation 130.6 mL/min (90-130) H 10/31/25 08:41 Glucose 114 mg/dL (65-115) 10/31/25 08:41 Calculated Osmolality 293 mOsm/kg (285-295) 10/31/25 08:41 Lactic Acid 1.8 mmol/L (0.5-2.2) 10/31/25 08:41 Calcium 9.4 mg/dL (8.5-10.5) 10/31/25 08:41 Total Bilirubin 0.3 mg/dL (0.15-1.2) 10/31/25 08:41 AST 25 U/L (0-32) 10/31/25 08:41 ALT 31 U/L (0-33) 10/31/25 08:41 Alkaline Phosphatase 90 U/L (35-105) 10/31/25 08:41 C-Reactive Protein 3.0 mg/L (0.0-4.9) 10/31/25 08:41 Total Protein 7.6 g/dL (6.6-8.7) 10/31/25 08:41 Albumin 4.4 g/dL (3.5-5.2) 10/31/25 08:41 Globulin 3.2 g/dL (1.3-4.6) 10/31/25 08:41 Lipase 28 U/L (13-60) 10/31/25 08:41 Urine Color Yellow (Yellow) 10/31/25 08:55 Urine Appearance Clear (CLEAR) 10/31/25 08:55 Urine pH 6.5 (5-7) 10/31/25 08:55 Ur Specific [place] 1.021 (1.005-1.030) 10/31/25 08:55 Urine Protein 2+ (Negative) A 10/31/25 08:55 Urine Glucose (UA) Negative (Normal) 10/31/25 08:55 Urine Ketones Negative (Negative) 10/31/25 08:55 Urine Blood Negative (Negative) 10/31/25 08:55 Urine Nitrate Negative (Negative) 10/31/25 08:55 Urine Bilirubin Negative (Negative) 10/31/25 08:55 Urine Urobilinogen 1.0 mg/dL (Negative) 10/31/25 08:55 Ur Leukocyte Esterase Negative (Negative) 10/31/25 08:55 Urine RBC 3-5 /hpf (0-2) 10/31/25 08:55 Urine WBC 0-5 /hpf (0-5) 10/31/25 08:55 Ur Squamous Epith Cells 0-5 /hpf (0-5) 10/31/25 08:55 Amorphous Sediment Not Reportable 10/31/25 08:55 Urine Bacteria None seen /hpf (NONE) 10/31/25 08:55 Hyaline Casts 2.05 /lpf 10/31/25 08:55 Influenza A (PCR) Negative (Negative) 10/31/25 08:57 Influenza Type B (PCR) Negative (Negative) 10/31/25 08:57 RSV (PCR) Negative (Negative) 10/31/25 08:57 SARS-CoV-2 (PCR) Negative (Negative) 10/31/25 08:57 No radiology studies performed this visit Discharge Plan Discharge Patient Disposition: Home Clinical Impression: Gastroenteritis, Dehydration Condition: Stable Prescriptions: New promethazine 25 mg suppository 25 mg NJ Q6H PRN (Reason: nausea and vomiting) Qty: 12 0RF ondansetron 8 mg tablet,disintegrating 8 mg PO Q6H Qty: 14 0RF Rx Instructions: Take 1/2-1 tab every 6 hours as needed for nausea and vomiting No Action verapamil 80 mg tablet 80 mg PO BID Qty: 60 5RF meloxicam 15 mg tablet 15 mg PO DAILY Qty: 30 1RF Discharge Orders: Discharge ED (Routine); Ordered 10/31/25 Ordered By: Patty Armstrong Referrals: Sharda Live FNP-C [Primary Care Provider, Family Practice] Discharge Diet: Advance as tolerated Patient Instructions: Acute Nausea and Vomiting (ED), Opioid Safety, Pain Management, Patient Portal & Lukas Instructions Activity Restrictions/Additional Instructions: Thank you for choosing [facility] for your healthcare needs today. You have been screened and evaluated and felt safe for discharge. Health conditions do change or evolve sometimes and as such it is important that you follow up with your Primary Doctor to be re checked, 3-5 days is a general good time frame for follow up. You are always welcome to return to the ED for re assessment if your symptoms are worsening or you have new concerns Print Language: Malay Coding Level of Care Code ED Sports Medicine Physician for Kemar Greenberg
[2025-10-31 08:51] LABS: Hematocrit 42.5 % (36-47); Hemoglobin 13.60 g/dL (11.27-16.99); Mean Corpuscular HGB Conc 32.0 g/dL (30-55); Mean Corpuscular Hemoglobin 29.8 pg (27-33); Mean Corpuscular Volume 93.2 fl (85-98); Nucleated Red Blood Cells % 0 %; Platelet Count 235 10^3/cmm (157-399); Red Blood Count 4.56 10^6/uL (3.85-5.65); White Blood Count 8.34 10^3/uL (3.29-11.43)
[2025-10-31 09:02] LABS: Glucose Urine UA Negative (Normal); Nitrate Urine Negative (Negative); Specific Gravity, Urine 1.021 (1.005-1.030)
[2025-10-31 09:08] LABS: Lactic Sepsis W/Reflex 1.8 mmol/L (0.5-2.2)
[2025-10-31 09:09] LABS: Alanine Aminotransferase 31 U/L (0-33); Albumin Level 4.4 g/dL (3.5-5.2); Alkaline Phosphatase 90 U/L (35-105); Anion Gap 14.2 (5-19); Aspartate Amino Transferase 25 U/L (0-32); Blood Urea Nitrogen 18 mg/dL (6-20); Calcium 9.4 mg/dL (8.5-10.5); Carbon Dioxide 26 mmol/L (22-29); Chloride 104 mmol/L (98-107); Globulin 3.2 g/dL (1.3-4.6); Glucose 114 mg/dL (65-115); Lipase 28 U/L (13-60); Osmolality Calculated 293 mOsm/kg (285-295); Potassium 4.2 mmol/L (3.5-5.1); Sodium 140 mmol/L (136-145); Total Protein 7.6 g/dL (6.6-8.7)
[2025-10-31 09:24] VITALS: BP 140/66; PULSE 62; RESP 15; O2SAT 91
[2025-10-31 09:43] LABS: Respiratory Syncytial Virus Ce NEGATIVE (Negative); SARS-CoV-2 PCR NEGATIVE (Negative)
[2025-10-31 09:58] VITALS: BP 140/67; PULSE 67; O2SAT 90
== END 2025-10-31 09:59 | disposition home or self-care (01) ==
PROVIDERS: Emergency Provider Emergency Medicine; PCP Nurse Practitioner Family
DX: K52.9 Noninfective gastroenteritis and colitis, unspecified (principal); E86.0 Dehydration; Z11.52 Encounter for screening for COVID-19; I10 Essential (primary) hypertension
CPT/HCPCS: 36415; 80053; 81001; 83605; 83690; 85025; 86140; 87040; 87637; 99283